=== PATIENT | male | born 1995 | race African-American/Black ===

== ENCOUNTER 2024-11-13 11:23 | Emergency (ER) | payer MEDICAID ==
[~2024-11-13] VITALS: Ht 162.6 cm; Wt 68.9 kg
[2024-11-13 11:33] VITALS: O2SAT 98
[2024-11-13 11:35] VITALS: BP 145/79; PULSE 116; RESP 17; TEMP 36.9; O2SAT 100
[2024-11-13] MEDS ORDERED: CEPH500C2 MT (12:07)
== END 2024-11-13 12:58 | disposition home or self-care (01) ==
LOC: ER 11:23
DX: L03.211 Cellulitis of face (principal); Z79.899 Other long term (current) drug therapy
CPT/HCPCS: 99283